=== PATIENT | male | born 1995 | race Caucasian/White ===

== ENCOUNTER 2017-04-05 22:48 | Emergency (ER) | payer BC ==
[~2017-04-05] VITALS: Ht 190.5 cm; Wt 113.6 kg
[2017-04-05 22:51] VITALS: TEMP 99.3
[2017-04-05 23:58] VITALS: BP 141/91; PULSE 78
== END 2017-04-05 23:58 | disposition home or self-care (01) ==
LOC: COL.ER 22:48
DX: T23.252A Burn of second degree of left palm, initial encounter (principal); X10.2XXA Contact with fats and cooking oils, initial encounter; Y92.511 Restaurant or cafe as the place of occurrence of the external cause

== ENCOUNTER 2017-04-25 20:19 | Emergency (ER) | payer BC ==
[~2017-04-25] VITALS: Ht 188 cm; Wt 116.7 kg
[2017-04-25 20:29] VITALS: BP 148/79; TEMP 98
[2017-04-25] MEDS ORDERED: PERCOCET 325 MG1 TA2 PO (20:33)
[2017-04-25 22:30] VITALS: PULSE 89
== END 2017-04-25 22:30 | disposition home or self-care (01) ==
LOC: COL.ER 20:19
DX: G89.29 Other chronic pain (principal); M54.5 Low back pain
CPT/HCPCS: J1170; J1885; J2360

== ENCOUNTER → 2021-05-23 | Emergency (ER) | payer SELFPAY ==
[~2021-05-23] VITALS: Ht 193 cm; Wt 85.0 kg
[~2021-05-23] MED LIST: PERCOCET 325 MG1 TA2 PO
[2021-05-23 21:18] VITALS: BP 136/95; PULSE 111; TEMP 97.3
== END ==
LOC: COL.ER 21:13
DX: M85.68 Other cyst of bone, other site (principal)